=== PATIENT | male | born 1940 | race Caucasian/White ===

== ENCOUNTER 2023-12-14 12:55 | Outpatient (REF) | payer MEDICARE, SELFPAY ==
[2023-12-14 13:02] LABS: MANUAL DIFF FLAG NO
[2023-12-14 13:06] LABS: Basophils Absolute Auto 0.1 X10*3/uL (0.0-0.2); Basophils Percent Auto 1.1 % (0-2); Eosinophils Absolute Auto 0.4 X10*3/uL (0.0-0.4); Eosinophils Percent Auto 4.5 % (0-4); Hematocrit 32.8 % (42.0-52.0); Hemoglobin 10.5 g/dl (14.0-18.0); Imm Gran Abs Auto 0.02 X10*3/uL (0.00-0.03); Imm Gran Pct Auto 0.2 % (0.0-0.4); Lymphocytes Absolute Auto 3.5 X10*3/uL (1.2-4.9); Lymphocytes Percent Auto 41.6 % (20-40); Mean Corpuscular Hemoglobin 27.3 pg (27.0-33.0); Mean Corpuscular Volume 85.2 fL (80.0-98.0); Mean Platelet Volume 10.1 fL (9.4-12.4); Monocytes Absolute Auto 0.5 X10*3/uL (0.1-1.2); Neutrophils Absolute Auto 3.9 x10*3/uL (2.0-8.3); Neutrophils Percent Auto 46.6 % (45-73); Platelet Count 228 X10*3/uL (160-400); Red Blood Count 3.85 X10*6/uL (4.60-5.80); Red Cell Distribution Width 19.9 % (11.0-16.0); White Blood Count 8.3 X10*3/uL (4.8-10.8)
[2023-12-14 13:31] LABS: Vancomycin Trough 16.8 mcg/mL (10.0-20.0)
[2023-12-14 13:32] LABS: Blood Urea Nitrogen 26 mg/dL (9-16); Estimated Glomerular Filt Rate 45
== END 2023-12-14 12:56 | disposition home or self-care (01) ==
LOC: HO.HVNA 12:55
PROVIDERS: Visit Provider Internal Medicine Infectious Disease
DX: T84.7XXA Infection and inflammatory reaction due to other internal orthopedic prosthetic devices, implants and grafts, initial encounter (principal); M00.872 Arthritis due to other bacteria, left ankle and foot
CPT/HCPCS: 36415; 80202; 82565; 84520; 85025

== ENCOUNTER 2023-12-21 14:41 | Outpatient (REF) | payer MEDICARE, SELFPAY ==
[2023-12-21 14:46] LABS: MANUAL DIFF FLAG NO
[2023-12-21 14:52] LABS: Basophils Absolute Auto 0.1 X10*3/uL (0.0-0.2); Basophils Percent Auto 0.8 % (0-2); Eosinophils Absolute Auto 0.2 X10*3/uL (0.0-0.4); Eosinophils Percent Auto 2.7 % (0-4); Hematocrit 32.6 % (42.0-52.0); Hemoglobin 10.4 g/dl (14.0-18.0); Imm Gran Abs Auto 0.01 X10*3/uL (0.00-0.03); Imm Gran Pct Auto 0.2 % (0.0-0.4); Lymphocytes Percent Auto 30.3 % (20-40); Mean Corpuscular HGB Conc 31.9 g/dl (31.0-36.0); Mean Corpuscular Hemoglobin 27.5 pg (27.0-33.0); Mean Corpuscular Volume 86.2 fL (80.0-98.0); Mean Platelet Volume 9.8 fL (9.4-12.4); Monocytes Absolute Auto 0.5 X10*3/uL (0.1-1.2); Monocytes Percent Auto 8.1 % (2-11); Neutrophils Absolute Auto 3.8 x10*3/uL (2.0-8.3); Neutrophils Percent Auto 57.9 % (45-73); Platelet Count 268 X10*3/uL (160-400); Red Blood Count 3.78 X10*6/uL (4.60-5.80); Red Cell Distribution Width 20.8 % (11.0-16.0); White Blood Count 6.6 X10*3/uL (4.8-10.8)
[2023-12-21 15:23] LABS: Vancomycin Trough 14.5 mcg/mL (10.0-20.0)
[2023-12-21 15:29] LABS: Blood Urea Nitrogen 33 mg/dL (9-16); Estimated Glomerular Filt Rate 49
== END 2023-12-21 14:42 | disposition home or self-care (01) ==
LOC: HO.HVNA 14:41
PROVIDERS: Visit Provider Internal Medicine Infectious Disease
DX: T84.7XXA Infection and inflammatory reaction due to other internal orthopedic prosthetic devices, implants and grafts, initial encounter (principal); M00.872 Arthritis due to other bacteria, left ankle and foot
CPT/HCPCS: 36415; 80202; 82565; 84520; 85025

== ENCOUNTER 2024-11-15 11:15 | Outpatient (RCR) | payer MEDICARE, SELFPAY | END 2024-12-19 13:50 | disposition home or self-care (01) | LOC: HO.WCC 11:15 | PROVIDERS: PCP Internal Medicine; Visit Provider Surgery | DX: L97.322 Non-pressure chronic ulcer of left ankle with fat layer exposed (principal); T81.31XA Disruption of external operation (surgical) wound, not elsewhere classified, initial encounter; X58.XXXA Exposure to other specified factors, initial encounter; Y93.9 Activity, unspecified; Y92.9 Unspecified place or not applicable; Y99.9 Unspecified external cause status; Z87.81 Personal history of (healed) traumatic fracture | CPT/HCPCS: 11042; 97597; 99203; 99212 ==